=== PATIENT | male | born 2000 | race Caucasian/White ===

== ENCOUNTER 2018-06-21 00:30 | Emergency (ER) | payer MEDICAID ==
[~2018-06-21] VITALS: Ht 175.3 cm; Wt 77.0 kg
[2018-06-21] MEDS ORDERED: IBUPROFEN 600MG TABLET PO ONE (03:15)
[2018-06-21 03:27] VITALS: BP 125/82
== END 2018-06-21 03:43 | disposition home or self-care (01) ==
LOC: ER 03:24
DX: H60.91 Unspecified otitis externa, right ear (principal); H61.21 Impacted cerumen, right ear; R03.0 Elevated blood-pressure reading, without diagnosis of hypertension
CPT/HCPCS: 99283; Z7610